=== PATIENT | female | born 1990 | race Two or more races ===

== ENCOUNTER 2017-03-19 18:30 | Emergency (ER) | payer MEDICAID, OTHER ==
--- NOTE | 2017-03-19 19:16 | ER Document Report ---
ED Medical Screen (RME) - General Chief Complaint: Vomiting Stated Complaint: RIGHT SIDE PAIN,VOMITING Time Seen by Provider: 03/19/17 19:11 Notes: Patient is 7 weeks and has been vomiting for the past 3 days. She has not had any diarrhea. Developed some pain in her right lower abdomen today. No fevers. No UTI symptoms. This is patient's fifth . Denies any vaginal bleeding or spotting. TRAVEL OUTSIDE OF THE [place] IN LAST 30 DAYS: No - Related Data Allergies/Adverse Reactions: No Known Allergies Allergy (Verified 03/19/17 18:37) Past Medical History Pulmonary Medical History: Reports: Hx Asthma Denies: Hx Tuberculosis Renal/ Medical History: Denies: Hx Peritoneal Dialysis Past Surgical History: Reports: Hx Section - x2 - Immunizations Hx Diphtheria, Pertussis, Tetanus Vaccination: Yes Physical Exam - Vital signs Vitals: Temp Pulse Resp BP Pulse Ox 98.1 F 100 21 H 110/58 L 99 03/19/17 18:37 03/19/17 18:37 03/19/17 18:37 03/19/17 18:37 03/19/17 18:37 Course - Vital Signs Vital signs: Temp Pulse Resp BP Pulse Ox 98.1 F 100 21 H 110/58 L 99 03/19/17 18:37 03/19/17 18:37 03/19/17 18:37 03/19/17 18:37 03/19/17 18:37
[2017-03-19] MEDS ORDERED: METOCLOPRAMIDE HCL INJ/PF 10 MG/2 ML SDV IV ONE (19:17)
[2017-03-19] MEDS ORDERED: NORMAL SALINE 1000 ML 1,000 ML IV ONE (19:17)
[2017-03-19 19:52] LABS: ABSOLUTE BASOPHILS # (AUTO) 0.1 10^3/uL (0.0-0.2); ABSOLUTE EOSINOPHILS # (AUTO) 0.1 10^3/uL (0.0-0.6); ABSOLUTE LYMPHOCYTES (AUTO) 1.9 10^3/uL (0.5-4.7); ABSOLUTE MONOCYTES (AUTO) 0.5 10^3/uL (0.1-1.4); ABSOLUTE NEUT (AUTO) 6.6 10^3/uL (1.7-8.2); BASOPHILS % (AUTO) 0.7 % (0-2); HEMATOCRIT 39.8 % (36.0-47.0); HEMOGLOBIN 13.7 g/dL (12.0-15.5); HGB HCT DIFFERENCE 1.3; LYMPHOCYTES % (AUTO) 20.4 % (13-45); MEAN CORPUSCULAR HEMOGLOBIN 30.5 pg (27.0-33.4); MEAN CORPUSCULAR HGB CONC 34.5 g/dL (32.0-36.0); MEAN CORPUSCULAR VOLUME 88 fl (80-97); MONOCYTES % (AUTO) 5.8 % (3-13); RED BLOOD COUNT 4.51 10^6/uL (3.72-5.28); RED CELL DISTRIBUTION WIDTH 13.1 % (11.5-14.0); SEGMENTED NEUTROPHILS % (AUTO) 72.1 % (42-78); WHITE BLOOD COUNT 9.1 10^3/uL (4.0-10.5)
[2017-03-19 19:56] LABS: APPEARANCE,URINE CLEAR; BILIRUBIN,URINE NEGATIVE (NEGATIVE); GLUCOSE, URINE NEGATIVE (NEGATIVE); KETONES,URINE 20 mg/dL (NEGATIVE); LEUKOCYTE ESTERASE,URINE NEGATIVE (NEGATIVE); NITRITE,URINE NEGATIVE (NEGATIVE); PROTEIN,URINE NEGATIVE (NEGATIVE); URINE SPECIFIC GRAVITY 1.008; UROBILINOGEN,URINE NEGATIVE mg/dL (<2.0)
[2017-03-19 20:08] LABS: ALANINE AMINOTRANSFERASE 37 U/L (9-52); ALBUMIN 4.4 g/dL (3.5-5.0); ALKALINE PHOSPHATASE 51 U/L (38-126); ANION GAP 10 (5-19); ASPARTATE AMINO TRANSFERASE 22 U/L (14-36); BILIRUBIN,DIRECT 0.3 mg/dL (0.0-0.4); BILIRUBIN,TOTAL 0.6 mg/dL (0.2-1.3); BLOOD UREA NITROGEN 7 mg/dL (7-20); CALCIUM 10.3 mg/dL (8.4-10.2); CARBON DIOXIDE 24 mmol/L (22-30); CHLORIDE 103 mmol/L (98-107); CREATININE RESULT 0.54 mg/dL (0.52-1.25); GLUCOSE 78 mg/dL (75-110); POTASSIUM 3.9 mmol/L (3.6-5.0); SODIUM 136.9 mmol/L (137-145); TOTAL PROTEIN 6.8 g/dL (6.3-8.2)
[2017-03-19] MEDS ORDERED: DIPHENHYDRAMINE HCL 50 MG/ML VIAL IV ONE (21:36)
--- NOTE | 2017-03-19 21:55 | ER Document Report ---
ED GI/ - General Chief Complaint: Vomiting Stated Complaint: RIGHT SIDE PAIN,VOMITING Time Seen by Provider: 03/19/17 19:11 Notes: Patient is a patient is a 26-year-old female, at 7 weeks gestation by last menstrual period, the comes emergency department for chief complaint of vomiting for 3 days at about 5+ times a day, that she also states she is feeling pain in the mid to right lower abdomen that began this evening and after she came to the emergency department she noticed that she has started vaginally spotting. Patient denies any fever, flank pain, she states she had a normal bowel movement earlier today. Patient is on vitamins, denies any other medications, was evaluated by [facility] already (Dr. Cartwright, [facility]). TRAVEL OUTSIDE OF THE [place] IN LAST 30 DAYS: No - Related Data Allergies/Adverse Reactions: No Known Allergies Allergy (Verified 03/19/17 18:37) Past Medical History - General Information source: Patient - Social History Smoking Status: Current Some Day Smoker Chew tobacco use (# tins/day): No Frequency of alcohol use: None Drug Abuse: None Lives with: Family Family History: Reviewed & Not Pertinent Patient has suicidal ideation: No Patient has homicidal ideation: No Pulmonary Medical History: Reports: Hx Asthma Denies: Hx Tuberculosis Renal/ Medical History: Denies: Hx Peritoneal Dialysis Past Surgical History: Reports: Hx Section - x2 - Immunizations Hx Diphtheria, Pertussis, Tetanus Vaccination: Yes Review of Systems - Review of Systems Constitutional: No symptoms reported EENT: No symptoms reported Cardiovascular: No symptoms reported Respiratory: No symptoms reported Gastrointestinal: See HPI Genitourinary: See HPI Female Genitourinary: No symptoms reported Musculoskeletal: No symptoms reported Skin: No symptoms reported Hematologic/Lymphatic: No symptoms reported Neurological/Psychological: No symptoms reported Physical Exam - Vital signs Vitals: Temp Pulse Resp BP Pulse Ox 98.1 F 100 21 H 110/58 L 99 03/19/17 18:37 03/19/17 18:37 03/19/17 18:37 03/19/17 18:37 03/19/17 18:37 Interpretation: Normal - General General appearance: Appears well In distress: None - HEENT Head: Normocephalic, Atraumatic Eyes: Normal Eyelashes: Normal Pupils: PERRL Mouth/Lips: Normal Mucous membranes: Dry Pharynx: Normal Neck: Normal - Respiratory Respiratory status: No respiratory distress Chest status: Nontender Breath sounds: Normal. No: Decreased air movement, Wheezing Chest palpation: Normal - Cardiovascular Rhythm: Regular, Tachycardia Heart sounds: Normal auscultation, S1 appreciated, S2 appreciated Murmur: No - Abdominal Inspection: Normal Distension: No distension Bowel sounds: Normal Tenderness: Tender - There is mild bilateral lower abdominal tenderness, generalized, no guarding Organomegaly: No organomegaly - Back Back: Normal, Nontender. No: Tender, CVA tenderness - Extremities General upper extremity: Normal inspection, Nontender, Normal strength, Normal temperature General lower extremity: Normal inspection, Nontender, Normal strength, Normal temperature - Neurological Neuro grossly intact: Yes Cognition: Normal Orientation: AAOx4 [place] Coma Scale Eye Opening: Spontaneous Jia Coma Scale Verbal: Oriented [place] Coma Scale Motor: Obeys Commands Jia Coma Scale Total: 15 Speech: Normal Motor strength normal: LUE, RUE, LLE, RLE Sensory: Normal - Psychological Associated symptoms: Normal affect, Normal mood - Skin Skin Temperature: Warm Skin Moisture: Dry Skin Color: Normal Course - Re-evaluation Re-evalutation: CBC, chemistry generally unremarkable, urine shows trace ketones and elevated specific gravity, patient given IV fluids, nausea medication. On reevaluation patient states she feels much better. Patient has some generalized lower abdominal tenderness, hCG is elevated, ultrasound performed and shows IUP with additional subchorionic hemorrhage. RhoGam is not indicated. Discussed all results with patient, patient states that she will follow-up closely with [facility] and that she is ready to go home, providing with nausea medication, provided with copy of her ultrasound, discussed follow-up, return precautions in detail, patient and state understanding and agreement - Vital Signs Vital signs: Temp Pulse Resp BP Pulse Ox 98.4 F 84 18 117/64 100 03/20/17 01:05 03/20/17 01:05 03/20/17 01:05 03/20/17 01:05 03/20/17 01:05 - Laboratory Result Diagrams: 03/19/17 19:25 03/19/17 19:25 Laboratory results interpreted by me: 03/19/17 03/19/17 03/19/17 19:25 19:25 19:25 Sodium 136.9 L Calcium 10.3 H Beta HCG, Quant 724832.00 H Urine Ketones 20 H Discharge - Discharge Clinical Impression: Vomiting affecting , Pelvic cramping Condition: Stable Disposition: HOME, SELF-CARE Additional Instructions: Ultrasound shows a subchorionic bleed which is most likely the cause of your cramping. Please fall precautions, no significant lifting, no exercise beyond walking, no sexual intercourse until approved to do so by [facility]. Follow-up closely with [facility] for additional management. Return to the Emergency department for any concerning worsening symptoms including severe pain, fever, very heavy bleeding, dizziness, or any other concerning symptoms. Prescriptions: Promethazine HCl [Phenergan 25 mg Tablet] 1 - 2 tab PO Q6H PRN #30 tablet PRN Reason: Referrals: ROSA CARTWRIGHT MD [Primary Care Provider] - Follow up as needed
[2017-03-20] MEDS ORDERED: ONDANSETRON ODT 4 MG TAB (6 TAB/DSPK) PO PRN (00:47)
[2017-03-20 01:13] VITALS: BP 117/64
== END 2017-03-20 01:10 | disposition home or self-care (01) ==
LOC: ER 18:30
DX: O21.9 Vomiting of pregnancy, unspecified (principal); O20.8 Other hemorrhage in early pregnancy; O26.891 Other specified pregnancy related conditions, first trimester; R10.2 Pelvic and perineal pain; R00.0 Tachycardia, unspecified; O99.331 Smoking (tobacco) complicating pregnancy, first trimester; O99.511 Diseases of the respiratory system complicating pregnancy, first trimester; J45.909 Unspecified asthma, uncomplicated; Z3A.01 Less than 8 weeks gestation of pregnancy
CPT/HCPCS: 99284; 96374; 96375; 86900; 86901; 36415; 84702; 85025; 80053; 81001; 76817; 93976; J1200; J2765

== ENCOUNTER 2017-04-26 08:29 | Emergency (ER) | payer MEDICAID ==
[2017-04-26 08:35] VITALS: BP 114/64
--- NOTE | 2017-04-26 09:11 | ER Document Report ---
ED GI/ - General Mode of Arrival: Ambulatory Information source: Patient TRAVEL OUTSIDE OF THE [place] IN LAST 30 DAYS: No - HPI Patient complains to provider of: Other Onset: This morning <THOMAS MAGALLON - Last Filed: 04/26/17 10:36> <LE SIBLEY - Last Filed: 04/26/17 11:36> - General Chief Complaint: Vaginal Bleeding Stated Complaint: ABDOMINAL PAIN Time Seen by Provider: 04/26/17 08:59 Notes: Patient is a 26-year-old female who presents to the emergency department today with complaints of lower abdominal pain. Patient states the pain is a cramping feeling and it began overnight last night. Patient states when she woke up this morning and she had slight vaginal bleeding. Patient is approximately 12 weeks . Patient denies any recent intercourse. (THOMAS MAGALLON) - Related Data Allergies/Adverse Reactions: No Known Allergies Allergy (Verified 04/26/17 08:32) Past Medical History - General Information source: Patient - Social History Smoking Status: Unknown if Ever Smoked Frequency of alcohol use: None Drug Abuse: None Lives with: Family Family History: Reviewed & Not Pertinent Patient has suicidal ideation: No Patient has homicidal ideation: No Pulmonary Medical History: Reports: Hx Asthma Past Surgical History: Reports: Hx Section - x2 - Immunizations Hx Diphtheria, Pertussis, Tetanus Vaccination: Yes <THOMAS MAGALLON - Last Filed: 04/26/17 10:36> Review of Systems - Review of Systems Constitutional: No symptoms reported EENT: No symptoms reported Cardiovascular: No symptoms reported Respiratory: No symptoms reported Gastrointestinal: See HPI, Abdominal pain - lower Genitourinary: No symptoms reported Female Genitourinary: See HPI, , Vaginal bleeding Musculoskeletal: No symptoms reported Skin: No symptoms reported Hematologic/Lymphatic: No symptoms reported Neurological/Psychological: No symptoms reported -: Yes All other systems reviewed and negative <THOMAS MAGALLON - Last Filed: 04/26/17 10:36> Physical Exam - Vital signs Interpretation: Normal - General General appearance: Appears well, Alert - HEENT Head: Normocephalic, Atraumatic Eyes: Normal Pupils: PERRL - Respiratory Respiratory status: No respiratory distress Chest status: Nontender Breath sounds: Normal Chest palpation: Normal - Cardiovascular Rhythm: Regular Heart sounds: Normal auscultation Murmur: No - Abdominal Inspection: Normal, Gravid female Distension: No distension Bowel sounds: Normal Tenderness: Nontender Organomegaly: No organomegaly - Back Back: Normal, Nontender - Extremities General upper extremity: Normal inspection, Nontender, Normal color, Normal ROM , Normal temperature General lower extremity: Normal inspection, Nontender, Normal color, Normal ROM , Normal temperature, Normal weight bearing. No: Gwendolyn's sign - Neurological Neuro grossly intact: Yes Cognition: Normal Orientation: AAOx4 Jia Coma Scale Eye Opening: Spontaneous Jia Coma Scale Verbal: Oriented Jia Coma Scale Motor: Obeys Commands Jia Coma Scale Total: 15 Speech: Normal Motor strength normal: LUE, RUE, LLE, RLE Sensory: Normal - Psychological Associated symptoms: Normal affect, Normal mood - Skin Skin Temperature: Warm Skin Moisture: Dry Skin Color: Normal <LE SIBLEY - Last Filed: 04/26/17 11:36> - Vital signs Vitals: Temp Pulse Resp BP Pulse Ox 98.6 F 90 16 114/64 99 04/26/17 08:33 04/26/17 08:33 04/26/17 08:33 04/26/17 08:33 04/26/17 08:33 Course - Laboratory Result Diagrams: 04/26/17 09:45 04/26/17 09:45 <THOMAS MAGALLON - Last Filed: 04/26/17 10:36> - Laboratory Result Diagrams: 04/26/17 09:45 04/26/17 09:45 <LE SIBLEY - Last Filed: 04/26/17 11:36> - Re-evaluation Re-evalutation: 04/26/17 11:35 Intrauterine and bedside ultrasound with heart beat at about 160 bpm. No evidence for urinary tract infection. Patient with scant vaginal bleeding. Would like to defer exam to [facility]. She is to follow-up with them this week. Stable for discharge. Return if any worsening or concerning symptoms. Understands and agrees with plan. Stable for discharge. (LE SIBLEY) - Vital Signs Vital signs: Temp Pulse Resp BP Pulse Ox 98.6 F 90 16 114/64 99 04/26/17 08:33 04/26/17 08:33 04/26/17 08:33 04/26/17 08:33 04/26/17 08:33 - Laboratory Laboratory results interpreted by me: 04/26/17 04/26/17 04/26/17 09:20 09:45 09:45 Hct 34.9 L Sodium 135.0 L BUN 6 L Creatinine 0.49 L Glucose 72 L Total Protein 5.9 L Albumin 3.3 L Beta HCG, Quant 03305.00 H Urine Urobilinogen 2.0 H Procedures - Ultrasound/Bedside Ultrasound/Bedside Ultrasound: Other - IUP, FHR 160bpm <LE SIBLEY - Last Filed: 04/26/17 11:36> Discharge <THOMAS MAGALLON - Last Filed: 04/26/17 10:36> <LE SIBLEY - Last Filed: 04/26/17 11:36> - Discharge Clinical Impression: Vaginal bleeding during , antepartum Qualifiers: Trimester: first trimester Qualified Code(s): O46.91 - Antepartum hemorrhage, unspecified, first trimester Condition: Stable Disposition: HOME, SELF-CARE Instructions: Bleeding During Early ([facility]) Forms: Return to Work Referrals: ROSA CARTWRIGHT MD [Primary Care Provider] - Follow up in 3-5 days Scribe Attestation: 04/26/17 11:36 I personally performed the services described in the documentation, reviewed and edited the documentation which was dictated to the scribe in my presence, and it accurately records my words and actions. (LE SIBLEY) Scribe Documentation - Scribe Written by Amnaibe:: Natividad Mcnair, 04/26/2017 1041 acting as scribe for :: Julian <THOMAS MAGALLON - Last Filed: 04/26/17 10:36>
[2017-04-26 10:06] LABS: APPEARANCE,URINE CLOUDY; BILIRUBIN,URINE NEGATIVE (NEGATIVE); GLUCOSE, URINE NEGATIVE (NEGATIVE); KETONES,URINE NEGATIVE (NEGATIVE); LEUKOCYTE ESTERASE,URINE NEGATIVE (NEGATIVE); NITRITE,URINE NEGATIVE (NEGATIVE); PROTEIN,URINE NEGATIVE (NEGATIVE); URINE SPECIFIC GRAVITY 1.023
[2017-04-26 10:13] LABS: RBC,URINE 0-1 /HPF
[2017-04-26 10:31] LABS: ABSOLUTE EOSINOPHILS # (AUTO) 0.1 10^3/uL (0.0-0.6); ABSOLUTE LYMPHOCYTES (AUTO) 1.5 10^3/uL (0.5-4.7); ABSOLUTE MONOCYTES (AUTO) 0.3 10^3/uL (0.1-1.4); ABSOLUTE NEUT (AUTO) 4.1 10^3/uL (1.7-8.2); BASOPHILS % (AUTO) 0.7 % (0-2); EOSINOPHILS % (AUTO) 1.1 % (0-6); HEMATOCRIT 34.9 % (36.0-47.0); HGB HCT DIFFERENCE 1.1; LYMPHOCYTES % (AUTO) 25.3 % (13-45); MEAN CORPUSCULAR HEMOGLOBIN 30.1 pg (27.0-33.4); MEAN CORPUSCULAR HGB CONC 34.4 g/dL (32.0-36.0); MEAN CORPUSCULAR VOLUME 88 fl (80-97); MONOCYTES % (AUTO) 5.2 % (3-13); RED BLOOD COUNT 3.99 10^6/uL (3.72-5.28); RED CELL DISTRIBUTION WIDTH 12.8 % (11.5-14.0); SEGMENTED NEUTROPHILS % (AUTO) 67.7 % (42-78)
[2017-04-26 10:48] LABS: ALANINE AMINOTRANSFERASE 17 U/L (9-52); ALBUMIN 3.3 g/dL (3.5-5.0); ALKALINE PHOSPHATASE 44 U/L (38-126); ANION GAP 5 (5-19); ASPARTATE AMINO TRANSFERASE 14 U/L (14-36); BILIRUBIN,DIRECT 0.3 mg/dL (0.0-0.4); BILIRUBIN,TOTAL 0.4 mg/dL (0.2-1.3); BLOOD UREA NITROGEN 6 mg/dL (7-20); CALCIUM 9.2 mg/dL (8.4-10.2); CARBON DIOXIDE 24 mmol/L (22-30); CHLORIDE 106 mmol/L (98-107); CREATININE RESULT 0.49 mg/dL (0.52-1.25); GLUCOSE 72 mg/dL (75-110); TOTAL PROTEIN 5.9 g/dL (6.3-8.2)
== END 2017-04-26 10:30 | disposition home or self-care (01) ==
LOC: ER 08:29
DX: O20.9 Hemorrhage in early pregnancy, unspecified (principal); O26.891 Other specified pregnancy related conditions, first trimester; R10.30 Lower abdominal pain, unspecified; O99.511 Diseases of the respiratory system complicating pregnancy, first trimester; J45.909 Unspecified asthma, uncomplicated; Z3A.00 Weeks of gestation of pregnancy not specified
CPT/HCPCS: 36415; 80053; 81001; 84702; 85025; 99284

== ENCOUNTER 2017-05-06 10:29 | Emergency (ER) | payer MEDICAID ==
[2017-05-06 10:41] VITALS: BP 109/55
--- NOTE | 2017-05-06 11:36 | ER Document Report ---
ED Medical Screen (RME) - General Chief Complaint: Abdominal Pain Stated Complaint: ABDOMINAL PAIN Time Seen by Provider: 05/06/17 11:27 Notes: 27-year-old female who is 13 weeks complaining of a one-week vaginal discharge brownish and pinkish, with onset last night of lower abdomen pain and migraine headache. She was seen here on 04/26/2017 with essentially the same symptoms. The discharge is continued since then. She was seen here on 2016 and had an ultrasound showing about a 6 week with small subchorionic bleed. I have greeted and performed a rapid initial assessment of this patient. A comprehensive ED assessment and evaluation of the patient, analysis of test results and completion of the medical decision making process will be conducted by additional ED providers. TRAVEL OUTSIDE OF THE [place] IN LAST 30 DAYS: No - Related Data Allergies/Adverse Reactions: No Known Allergies Allergy (Verified 04/26/17 08:32) Past Medical History Pulmonary Medical History: Reports: Hx Asthma Denies: Hx Tuberculosis Renal/ Medical History: Denies: Hx Peritoneal Dialysis Past Surgical History: Reports: Hx Section - x2 - Immunizations Hx Diphtheria, Pertussis, Tetanus Vaccination: Yes Physical Exam - Vital signs Vitals: Temp Pulse Resp BP Pulse Ox 98.5 F 96 15 109/55 L 97 05/06/17 10:36 05/06/17 10:36 05/06/17 10:36 05/06/17 10:36 05/06/17 10:36 Course - Vital Signs Vital signs: Temp Pulse Resp BP Pulse Ox 98.5 F 96 15 109/55 L 97 05/06/17 10:36 05/06/17 10:36 05/06/17 10:36 05/06/17 10:36 05/06/17 10:36
[2017-05-06 11:54] LABS: ABSOLUTE EOSINOPHILS # (AUTO) 0.1 10^3/uL (0.0-0.6); ABSOLUTE LYMPHOCYTES (AUTO) 1.5 10^3/uL (0.5-4.7); ABSOLUTE MONOCYTES (AUTO) 0.3 10^3/uL (0.1-1.4); BASOPHILS % (AUTO) 0.6 % (0-2); EOSINOPHILS % (AUTO) 0.9 % (0-6); HEMATOCRIT 35.6 % (36.0-47.0); HEMOGLOBIN 12.4 g/dL (12.0-15.5); HGB HCT DIFFERENCE 1.6; LYMPHOCYTES % (AUTO) 18.7 % (13-45); MEAN CORPUSCULAR HEMOGLOBIN 30.8 pg (27.0-33.4); MEAN CORPUSCULAR HGB CONC 34.8 g/dL (32.0-36.0); MEAN CORPUSCULAR VOLUME 89 fl (80-97); MONOCYTES % (AUTO) 3.8 % (3-13); RED BLOOD COUNT 4.02 10^6/uL (3.72-5.28); RED CELL DISTRIBUTION WIDTH 12.6 % (11.5-14.0); WHITE BLOOD COUNT 7.9 10^3/uL (4.0-10.5)
--- NOTE | 2017-05-06 12:42 | ER Document Report ---
ED GI/ - General Chief Complaint: Abdominal Pain Stated Complaint: ABDOMINAL PAIN Time Seen by Provider: 05/06/17 11:27 Notes: The patient is a 27-year-old female, 13 weeks , presents with lower abdominal pain and continuing brown vaginal discharge. Pt also with mild headache, similar to prior headaches. She was here last week for similar symptoms. She has an appointment with OB in 2 days. She denies any concerns for STDs, dysuria, nausea, vomiting, diarrhea, constipation or rash. TRAVEL OUTSIDE OF THE [place] IN LAST 30 DAYS: No - Related Data Allergies/Adverse Reactions: No Known Allergies Allergy (Verified 04/26/17 08:32) Past Medical History - General Information source: Patient - Social History Smoking Status: Unknown if Ever Smoked Family History: Reviewed & Not Pertinent Patient has suicidal ideation: No Patient has homicidal ideation: No Pulmonary Medical History: Reports: Hx Asthma Denies: Hx Tuberculosis Renal/ Medical History: Denies: Hx Peritoneal Dialysis Past Surgical History: Reports: Hx Section - x2 - Immunizations Hx Diphtheria, Pertussis, Tetanus Vaccination: Yes Review of Systems - Review of Systems Notes: REVIEW OF SYSTEMS: CONSTITUTIONAL: -fevers, -chills EENT: -eye pain, -difficulty swallowing, -nasal congestion CARDIOVASCULAR:-chest pain, -syncope. RESPIRATORY: -cough, -SOB GASTROINTESTINAL: +lower abdominal pain, -nausea, -vomiting, -diarrhea GENITOURINARY: -dysuria, -hematuria, +vaginal discharge MUSCULOSKELETAL: -back pain, -neck pain SKIN: -rash or skin lesions. HEMATOLOGIC: -easy bruising or bleeding. LYMPHATIC: -swollen, enlarged glands. NEUROLOGICAL: -altered mental status or loss of consciousness, -headache, - neurologic symptoms PSYCHIATRIC: -anxiety, -depression. ALL OTHER SYSTEMS REVIEWED AND NEGATIVE. Physical Exam - Vital signs Vitals: Temp Pulse Resp BP Pulse Ox 98.5 F 96 15 109/55 L 97 05/06/17 10:36 05/06/17 10:36 05/06/17 10:36 05/06/17 10:36 05/06/17 10:36 - Notes Notes: PHYSICAL EXAMINATION: GENERAL: Well-appearing, well-nourished and in no acute distress. HEAD: Atraumatic, normocephalic. EYES: Pupils equal round and reactive to light, extraocular movements intact, sclera anicteric, conjunctiva are normal. ENT: nares patent, oropharynx clear without exudates. Moist mucous membranes. NECK: Normal range of motion, supple without lymphadenopathy LUNGS: Breath sounds clear to auscultation bilaterally and equal. No wheezes rales or rhonchi. HEART: Regular rate and rhythm without murmurs ABDOMEN: Soft, nontender, normoactive bowel sounds. No guarding, no rebound. No masses appreciated. PELVIC: Pt deferred to OB appointment in 2 days. EXTREMITIES: Normal range of motion, no pitting or edema. No cyanosis. NEUROLOGICAL: Cranial nerves grossly intact. Normal speech, normal gait. Normal sensory and motor exams. PSYCH: Normal mood, normal affect. SKIN: Warm, Dry, normal turgor, no rashes or lesions noted. Course - Re-evaluation Re-evalutation: Patient appears well. Bedside ultrasound shows a single intrauterine . Patient defers pelvic exam at this time because she has an OB appointment in 2 days. She does not have concern for gonorrhea or chlamydia. Instructed her to continue Tylenol and add magnesium for her migraine. Given return precautions and she understands. - Vital Signs Vital signs: Temp Pulse Resp BP Pulse Ox 98.5 F 96 15 109/55 L 97 05/06/17 10:36 05/06/17 10:36 05/06/17 10:36 05/06/17 10:36 05/06/17 10:36 - Laboratory Result Diagrams: 05/06/17 11:40 Laboratory results interpreted by me: 05/06/17 05/06/17 11:40 11:40 Hct 35.6 L Beta HCG, Quant 56569.00 H Procedures - Ultrasound/Bedside Ultrasound/Bedside Time completed: 12:52 Ultrasound: Normal Notes: Bedside Transabdominal US: single IUP with FHR 152 Discharge - Discharge Clinical Impression: Lower abdominal pain Headache Qualifiers: Headache type: unspecified Headache chronicity pattern: unspecified pattern Intractability: not intractable Qualified Code(s): R51 - Headache Condition: Stable Disposition: HOME, SELF-CARE Additional Instructions: HEADACHE: The physician does not feel that the headache you are experiencing has a serious underlying cause. Most headaches are due to emotional stress, with resultant muscle tension (tension headache). Occasionally, headaches are secondary to changes in the blood vessels of the scalp (vascular headache and migraine headache). Sometimes, a headache is the first symptom of another developing illness, such as a viral infection. You have no evidence of stroke, bleeding, meningitis, or other serious cause of your headache. The treatment of headaches varies with the severity and cause of the pain. Not all headaches need pain shots. In fact, there is evidence that using narcotics for headaches may make them worse in the long run. The physician will determine the therapy that's in your best interest. If you develop a fever, if the headache is different from any you've previously experienced, or if the headache progressively worsens, then call your physician at once or go to the emergency room. REGLAN (METOCLOPRAMIDE): Reglan has been prescribed. This medicine affects the stomach and intestines. It can be used to treat nausea and vomiting, to prevent reflux of stomach acid up into the esophagus, or to increase the contractions of the stomach and intestines. It is often prescribed for esophagitis, and for paralysis of the stomach in diabetics. Reglan can cause either mild restlessness or drowsiness. You should contact the doctor at once if you become extremely restless, anxious, or cannot sleep, or if you develop uncontrollable motions of the lips, tongue, or jaw. Do not take alcohol with this medicine. Do not drive or operate machinery until you have been taking this medicine long enough to know how it affects you. Call the doctor if you develop abdominal pains, lightheadedness, black stool, or blood in the stool or vomitus. USE OF DIPHENHYDRAMINE: Diphenhydramine (Benadryl) is an antihistamine and has been recommended to help treat your headache and to prevent side effects of other medications used to treat headaches. The medication can be repeated four times daily. Age Elixir (12.5 mg/tsp) 25 mg pill adult 1-2 tabs Antihistamines may cause drowsiness, especially with the first dose. Do not operate machinery or drive while under the effects of the medication. Do not combine the medication with alcohol, or with any other medication without talking to your doctor. FOLLOW-UP CARE: If you have been referred to a physician for follow-up care, call the physician s office for an appointment as you were instructed or within the next two days. If you experience worsening or a significant change in your symptoms, notify the physician immediately or return to the Emergency Department at any time for re-evaluation. ABDOMINAL PAIN: There are many causes of abdominal pain. Pain can mean a serious problem requiring surgery (such as appendicitis). It can also be an innocent problem that goes away on its own (such as a viral infection). Often, time must pass to determine the cause of pain. The physician does not feel that hospitalization is necessary, at present. Things may change within the next 24 hours. Call the doctor or come back for re- examination if any problems occur, such as: (1) Pain that becomes more severe, steady, or becomes concentrated in one specific area. Also, pain that is more severe with movement or coughing. (2) Vomiting that persists or becomes more frequent. (3) Blood in the vomitus, urine, or bowel movements. Blood in the stool may have a tarry or black appearance. (4) Shaking chills or fever greater than 100 degrees F. (5) The abdomen becomes more distended or swollen. (6) Bowel movements cease. (7) Failure to improve as expected. NORMAL EXAM AND WORKUP: At this time, your examination and workup show no significant abnormality. No significant abnormal physical findings are noted. All laboratory, EKG, and imaging (x-ray, CT scans, ultrasound) studies that were ordered show no significant abnormality. Although your examination and all studies that were ordered showed no significant abnormal finding, there are no examinations and no studies that are 100% accurate. There is always the possibility that some abnormality could exist and not be detected with physical examination or within the limits and capabilities of laboratory and other studies. You should return or follow up as you were instructed on your visit today for further evaluation if your symptoms do not resolve. FOLLOW-UP CARE: If you have been referred to a physician for follow-up care, call the physician s office for an appointment as you were instructed or within the next two days. If you experience worsening or a significant change in your symptoms, notify the physician immediately or return to the Emergency Department at any time for re-evaluation. Prescriptions: Magnesium Oxide 400 mg PO Q8H PRN #30 tablet PRN Reason: Referrals: ROSA CARTWRIGHT MD [Primary Care Provider] - Follow up as needed
[2017-05-06 14:05] LABS: AMORPHOUS SEDIMENT,URINE TRACE /HPF; APPEARANCE,URINE SLIGHTLY-CLOUDY; BILIRUBIN,URINE NEGATIVE (NEGATIVE); GLUCOSE, URINE NEGATIVE (NEGATIVE); KETONES,URINE NEGATIVE (NEGATIVE); LEUKOCYTE ESTERASE,URINE NEGATIVE (NEGATIVE); NITRITE,URINE NEGATIVE (NEGATIVE); PROTEIN,URINE NEGATIVE (NEGATIVE); URINE SPECIFIC GRAVITY 1.013; UROBILINOGEN,URINE NEGATIVE mg/dL (<2.0)
[2017-05-06 14:18] LABS: CHLAM PCR NOT DETECTED (NOT DETECT)
== END 2017-05-06 14:58 | disposition home or self-care (01) ==
LOC: ER 10:29
DX: R10.30 Lower abdominal pain, unspecified (principal); R51 Headache; R10.9 Unspecified abdominal pain; Z3A.13 13 weeks gestation of pregnancy
CPT/HCPCS: 36415; 81001; 84702; 85025; 87491; 87591; 99284

== ENCOUNTER 2017-06-16 16:03 | Emergency (ER) | payer MEDICAID ==
[2017-06-16 16:27] VITALS: BP 110/71
== END 2017-06-16 16:55 | disposition left against medical advice (07) ==
LOC: ER 16:03 → EDSTATUS 16:03 → ER 16:55
DX: Z53.21 Procedure and treatment not carried out due to patient leaving prior to being seen by health care provider (principal)

== ENCOUNTER 2017-07-27 11:26 | Outpatient (CLI) | payer MEDICAID ==
[2017-07-27 12:03] LABS: AMORPHOUS SEDIMENT,URINE 1+ /HPF; APPEARANCE,URINE TURBID; BILIRUBIN,URINE NEGATIVE (NEGATIVE); GLUCOSE, URINE NEGATIVE (NEGATIVE); KETONES,URINE NEGATIVE (NEGATIVE); LEUKOCYTE ESTERASE,URINE NEGATIVE (NEGATIVE); NITRITE,URINE NEGATIVE (NEGATIVE); PROTEIN,URINE NEGATIVE (NEGATIVE); URINE SPECIFIC GRAVITY 1.017; UROBILINOGEN,URINE NEGATIVE mg/dL (<2.0)
[2017-07-27 12:16] LABS: URINE METHADONE SCREEN NEGATIVE; URINE OPIATES LOW NEGATIVE; URINE PHENCYCLIDINE SCREEN NEGATIVE
[2017-07-27 12:24] LABS: URINE BARBITURATES SCREEN UNCONFIRMED POSITIVE
[2017-07-27] MEDS ORDERED: NIFEDIPINE 10 MG CAPSULE ONE (12:48)
[2017-07-27] MEDS ORDERED: NIFEDIPINE 10 MG CAPSULE PO ONE (12:50)
== END 2017-07-27 13:30 | disposition home or self-care (01) ==
LOC: LC 11:26
PROVIDERS: ATTEND Student in an Organized Health Care Education/Training Program
PROC: 4A1HXCZ Monitoring of Products of Conception, Cardiac Rate, External Approach (ICD-10-PCS; principal; 2017-07-27)
DX: O47.02 False labor before 37 completed weeks of gestation, second trimester (principal); Z3A.25 25 weeks gestation of pregnancy
CPT/HCPCS: 59899; 81001; 80307; 80345; G0480; J3490

== ENCOUNTER 2017-08-29 16:41 | Outpatient (CLI) | payer MEDICAID ==
[2017-08-29 17:42] LABS: AMORPHOUS SEDIMENT,URINE TRACE /HPF; APPEARANCE,URINE CLOUDY; BILIRUBIN,URINE NEGATIVE (NEGATIVE); GLUCOSE, URINE NEGATIVE (NEGATIVE); KETONES,URINE NEGATIVE (NEGATIVE); LEUKOCYTE ESTERASE,URINE NEGATIVE (NEGATIVE); NITRITE,URINE NEGATIVE (NEGATIVE); PROTEIN,URINE NEGATIVE (NEGATIVE); URINE SPECIFIC GRAVITY 1.009; UROBILINOGEN,URINE NEGATIVE mg/dL (<2.0)
[2017-08-29] MEDS ORDERED: TERBUTALINE SULFATE INJ/PF 1 MG/1 ML SDV SUBCUT PRN (17:45)
[2017-08-29] MEDS ORDERED: RINGERS SOLUTION,LACTATED 1,000 ML IV PRN (17:45)
[2017-08-29] MEDS ORDERED: TERBUTALINE SULFATE INJ/PF 1 MG/1 ML SDV ONE (17:48)
[2017-08-29 17:53] LABS: URINE BARBITURATES SCREEN NEGATIVE; URINE METHADONE SCREEN NEGATIVE; URINE OPIATES LOW NEGATIVE; URINE PHENCYCLIDINE SCREEN NEGATIVE
--- NOTE | 2017-08-29 19:25 | RADIOLOGY REPORT (SQ) ---
EXAM DESCRIPTION: U/S OB LIMITED COMPLETED DATE/TIME: 08/29/2017 6:58 pm REASON FOR STUDY: 29wk, ctx, cervical length COMPARISON: None. TECHNIQUE: Limited transabdominal grayscale ultrasound for evaluation of specific requested obstetri dexter parameters. LIMITATIONS: None. FINDINGS: CERVICAL LENGTH: Cervical funneling is demonstrated; the closed segment measures 1.7 cm. GURJIT: Formal GURJIT not performed. Subjectively adequate. FHR: 139 beats per minute. PRESENTATION: Cephalic. OTHER: No other significant findings. IMPRESSION: LIMITED OBSTETRICAL ULTRASOUND WITH MEASURED PARAMETERS DELINEATED ABOVE. Trimester of : Third trimester - 28 weeks to delivery. TECHNICAL DOCUMENTATION: JOB ID: [id number] [employer]- All Rights Reserved
[2017-08-29 19:57] LABS: CHLAM PCR NOT DETECTED (NOT DETECT)
== END 2017-08-29 21:49 | disposition home or self-care (01) ==
LOC: LC 16:41
PROVIDERS: ATTEND Obstetrics & Gynecology
PROC: 4A1HXCZ Monitoring of Products of Conception, Cardiac Rate, External Approach (ICD-10-PCS; principal; 2017-08-29)
DX: O47.03 False labor before 37 completed weeks of gestation, third trimester (principal); Z3A.29 29 weeks gestation of pregnancy
CPT/HCPCS: 87086; 87210; 81001; 80307; 87491; 87591; 82731; 76815; 59899; J3105

== ENCOUNTER 2017-09-18 11:00 | Outpatient (CLI) | payer MEDICAID ==
[2017-09-18 11:33] LABS: APPEARANCE,URINE CLEAR; BILIRUBIN,URINE NEGATIVE (NEGATIVE); GLUCOSE, URINE NEGATIVE (NEGATIVE); KETONES,URINE NEGATIVE (NEGATIVE); LEUKOCYTE ESTERASE,URINE NEGATIVE (NEGATIVE); NITRITE,URINE NEGATIVE (NEGATIVE); PROTEIN,URINE NEGATIVE (NEGATIVE); URINE SPECIFIC GRAVITY 1.013; UROBILINOGEN,URINE NEGATIVE mg/dL (<2.0)
[2017-09-18 11:48] LABS: URINE BARBITURATES SCREEN NEGATIVE; URINE METHADONE SCREEN NEGATIVE; URINE OPIATES LOW NEGATIVE; URINE PHENCYCLIDINE SCREEN NEGATIVE
== END 2017-09-18 12:16 | disposition home or self-care (01) ==
LOC: LC 11:00
PROVIDERS: ATTEND Obstetrics & Gynecology Gynecology
PROC: 4A1HXCZ Monitoring of Products of Conception, Cardiac Rate, External Approach (ICD-10-PCS; principal; 2017-09-18)
DX: O47.03 False labor before 37 completed weeks of gestation, third trimester (principal); Z3A.32 32 weeks gestation of pregnancy
CPT/HCPCS: 59025; 80307; 81001

== ENCOUNTER 2017-10-05 15:06 | Emergency (ER) | payer MEDICAID ==
[2017-10-05 15:17] VITALS: BP 110/65
--- NOTE | 2017-10-05 20:37 | EKG REPORT ---
SEVERITY:- NORMAL ECG - SINUS RHYTHM : Confirmed by: Han Morgan 05-Oct-2017 20:37:24
== END 2017-10-05 16:13 | disposition left against medical advice (07) ==
LOC: ER 15:06
DX: Z53.21 Procedure and treatment not carried out due to patient leaving prior to being seen by health care provider (principal)
CPT/HCPCS: 93005; 93010

== ENCOUNTER 2017-10-19 05:03 | Inpatient (IN) | payer MEDICAID ==
[2017-10-16 11:11] LABS: APPEARANCE,URINE SLIGHTLY-CLOUDY; BILIRUBIN,URINE NEGATIVE (NEGATIVE); GLUCOSE, URINE NEGATIVE (NEGATIVE); KETONES,URINE NEGATIVE (NEGATIVE); LEUKOCYTE ESTERASE,URINE NEGATIVE (NEGATIVE); NITRITE,URINE NEGATIVE (NEGATIVE); PROTEIN,URINE NEGATIVE (NEGATIVE); URINE SPECIFIC GRAVITY 1.018; UROBILINOGEN,URINE NEGATIVE mg/dL (<2.0)
[2017-10-16 11:27] LABS: URINE BARBITURATES SCREEN NEGATIVE; URINE METHADONE SCREEN NEGATIVE; URINE OPIATES LOW NEGATIVE; URINE PHENCYCLIDINE SCREEN NEGATIVE
[2017-10-17 10:25] LABS: ABSOLUTE BASOPHILS # (AUTO) 0.1 10^3/uL (0.0-0.2); ABSOLUTE EOSINOPHILS # (AUTO) 0.1 10^3/uL (0.0-0.6); ABSOLUTE LYMPHOCYTES (AUTO) 1.8 10^3/uL (0.5-4.7); ABSOLUTE MONOCYTES (AUTO) 0.6 10^3/uL (0.1-1.4); ABSOLUTE NEUT (AUTO) 7.4 10^3/uL (1.7-8.2); BASOPHILS % (AUTO) 0.5 % (0-2); EOSINOPHILS % (AUTO) 1.2 % (0-6); HEMATOCRIT 30.7 % (36.0-47.0); HEMOGLOBIN 10.7 g/dL (12.0-15.5); HGB HCT DIFFERENCE 1.4; LYMPHOCYTES % (AUTO) 17.9 % (13-45); MEAN CORPUSCULAR HEMOGLOBIN 31.5 pg (27.0-33.4); MEAN CORPUSCULAR HGB CONC 34.7 g/dL (32.0-36.0); MEAN CORPUSCULAR VOLUME 91 fl (80-97); MONOCYTES % (AUTO) 6.1 % (3-13); RED BLOOD COUNT 3.38 10^6/uL (3.72-5.28); RED CELL DISTRIBUTION WIDTH 13.4 % (11.5-14.0); SEGMENTED NEUTROPHILS % (AUTO) 74.3 % (42-78)
[~2017-10-19 05:03] MED LIST: CEFAZOLIN 2 GM/D5W RTU 2 GM/50 ML RTUPB IV PRN; LACTATED RINGERS 1000 ML IV PRN; LIDOCAINE 0.5% INJ-PF (5 MG/ML) 50 ML SDV SUBCUT PRN; RINGERS SOLUTION,LACTATED 1,000 ML IV PRN
[2017-10-19] MEDS ORDERED: FENTANYL CITRATE INJ/PF 100 MCG/2 ML AMPUL ONE (07:31)
[2017-10-19] MEDS ORDERED: EPHEDRINE SULFATE INJ 50 MG/1 ML AMPULE ONE ×2 (07:31→08:16)
[2017-10-19] MEDS ORDERED: OXYTOCIN 10 UNIT/ML VIAL ONE (07:31)
[2017-10-19] MEDS ORDERED: MIDAZOLAM 2 MG/2 ML INJ ONE (07:32)
[2017-10-19] MEDS ORDERED: OXYTOCIN/NORMAL SALINE 20 UNIT/1,000 ML RTUINJ ONE (07:32)
[2017-10-19] MEDS ORDERED: ACETAMINOPHEN 100 ML IV ONE (07:32)
[2017-10-19] MEDS ORDERED: ONDANSETRON HCL INJ/PF 4 MG/2 ML SDV ONE (07:32)
[2017-10-19] MEDS ORDERED: PROMETHAZINE HCL INJ 25 MG/1 ML VIAL IV PRN ×3 (08:28→09:01)
[2017-10-19] MEDS ORDERED: MEPERIDINE HCL/PF INJ 25 MG/1 ML DISP.SYRIN IV PRN (08:28)
[2017-10-19] MEDS ORDERED: DIPHENHYDRAMINE HCL 50 MG/ML VIAL IV PRN (08:28)
[2017-10-19] MEDS ORDERED: MORPHINE SULFATE 10 MG/ML INJ IV PRN (08:28)
[2017-10-19] MEDS ORDERED: FENTANYL CITRATE INJ/PF 100 MCG/2 ML AMPUL IV PRN ×3 (08:28)
[2017-10-19] MEDS ORDERED: OXYCODONE-ACETAMINOPHEN 5-325 MG TABLET PO PRN ×4 (08:28→09:01)
[2017-10-19] MEDS ORDERED: ONDANSETRON HCL INJ/PF 4 MG/2 ML SDV IV PRN (08:28)
[2017-10-19] MEDS ORDERED: OXYTOCIN/NORMAL SALINE 20 UNIT/1,000 ML RTUINJ IV PRN (09:01)
[2017-10-19] MEDS ORDERED: ACETAMINOPHEN 100 ML IV PRN (09:01)
[2017-10-19] MEDS ORDERED: DIPH/PERTUSS(ACELL)/TETANUS VAC/PF 0.5 ML SYR (>=10YO) IM PRN ×2 (09:01→12:30)
[2017-10-19] MEDS ORDERED: MEASLES,MUMPS&RUBELLA VACC/PF 0.5 ML VIAL SUBCUT PRN (09:01)
[2017-10-19] MEDS ORDERED: ACETAMINOPHEN 325 MG TABLET PO PRN (09:01)
[2017-10-19] MEDS ORDERED: RINGERS SOLUTION,LACTATED 1,000 ML IV PRN (09:01)
[2017-10-19] MEDS ORDERED: NALBUPHINE HCL INJ 10 MG/1 ML AMPULE ONE (09:07)
--- NOTE | 2017-10-19 09:19 | Operative Report ---
Operative Report DATE OF SURGERY: 10/19/17 PREOPERATIVE DIAGNOSIS: Repeat to prevent uterine rupture POSTOPERATIVE DIAGNOSIS: Same OPERATION: Repeat via low transverse uterine incision SURGEON: YADIRA LOWRY ANESTHESIA: Spinal TISSUE REMOVED OR ALTERED: Placenta COMPLICATIONS: None ESTIMATED BLOOD LOSS: 250 cc INTRAOPERATIVE FINDINGS: Viable female Apgars 8 and 9 weight 6 lbs. 15 oz. normal uterus and ovaries and tubes PROCEDURE: Patient was taken to the OR and placed in supine position after her spinal anesthesia. She is prepared and draped in sterile fashion. Hummel was placed for drainage of the bladder. Low transverse incision was made and carried down the level of the fascia. The fascial incision was made with knife and extended bilaterally with curved Stafford scissors. The fascia was off the rectus muscles using sharp and blunt dissection. The rectus muscles are in the midline. The peritoneum was entered without incident. Bladder blade was placed in uterine segment was identified. A low transverse incision was made creating a bladder flap. Bladder blade was placed low transverse uterine incision was made with the csafe knife and extended with fingertips. The baby was delivered with some fundal pressure. Mouth and nose were suctioned free. The cord is doubly clamped and cut. Baby is passed off to the banquet pilot in attendance. The placenta was manually extracted with trailing membranes. The uterus was externalized wrapped in a moist lap sponge. Uterine contents wiped free. Uterus was closed with a running locking layer of 0 chromic suture using the second layer to imbricate the first completing a double layer closure of the uterus. The serosa was closed with a running 2-0 chromic stitch. The pelvis was irrigated and suctioned free of fluid the uterus was replaced in the abdomen. The abdominal wall peritoneum was closed with running 2-0 chromic stitch. Fascia was closed with a running 0 Vicryl in 2 segments. Cali's layer was brought together with 0 plain gut stitch and the skin was closed with running subcuticular 4-0 undyed Vicryl stitch. The wound was dressed mother and baby did well.
--- NOTE | 2017-10-19 09:22 | PDOC DELIVERY SUMMARY ---
Delivery Summary - Maternal Hx : VII Hx # Term Pregnancies: 1 Hx # Pregnancies: 1 MILADIS: 11/08/17 Gestational Age: 37/1 Ruptured Membranes: AROM Time of Rupture: 08:23 Fluids: Clear - Delivery Presentation: Vertex Heart Rate Monitoring: Done Pre-Operatively Support Person Present: Yes - , EMPERATRIZ QUEEN Location: OR : Scheduled Placenta: Within Normal Limits Delivery of Placenta Date: 10/19/17 Delivery of Placenta Time: 08:25 - Medications Type of Anesthesia:: Spinal - Assess and Care Baby 1 Female Delivery of Date: 10/19/17 Delivery of Infant Time: 08:24 at 1 minute: 8 at 5 minutes: 9 Preprinted Number On Band: [id number] Skin to Skin: No To Nursery At: 08:32 Mode of Transport: Bassinet Delivery Weight: 3,155 Infant Delivery Length: 20.5 in - Delivery Personnel Adobe Layer: ROSENDA Goodson RN: PASTOR DUBOIS RN: REYNA JAMES MD: YADIRA LOWRY
[2017-10-19] MEDS ORDERED: KETOROLAC TROMETHAMINE INJ/PF 30 MG/1 ML SDV ONE (10:07)
[2017-10-19] MEDS: KETOROLAC TROMETHAMINE INJ/PF 30 MG/1 ML SDV IV SCH ×2 (10:08→18:04)
[2017-10-19] MEDS ORDERED: HYDROMORPHONE HCL INJ/PF 2 MG/ML AMPULE ONE (10:08)
[2017-10-19] MEDS: HYDROMORPHONE HCL INJ/PF 2 MG/ML AMPULE IV PRN ×2 (10:26→14:15)
--- NOTE | 2017-10-19 11:24 | Admission Physical ---
Datetime Report Generated by CPN: 10/19/2017 11:23 CURRENT ADMISSION Chief Complaint: Uterine Contractions Chief Complaint Other: Vaginal pressure Indication for Induction: Not Applicable Admit Plan: Initiate Labor Protocol Admit Plan- Other: labor monitoring ALLERGIES Medication Allergies: No Medication Allergies: No Known Allergies (10/16/2017) Medication Allergies: No Known Allergies (09/18/2017) Medication Allergies: No Known Allergies (08/29/2017) Medication Allergies: No Known Allergies (07/27/2017) Medication Allergies: No Known Allergies (06/16/2017) Medication Allergies: No Known Allergies (04/26/2017) Latex: No Latex Allergies Food Allergies: N/A Environmental Allergies: N/A OBSTETRICAL HISTORY EDC: 11/08/2017 00:00 : 7 Para: 2 Term: 1 : 1 SAB: 4 IAB: 0 Ectopic: 0 Livin Cesareans: 2 VBACs: 0 Multiple Births: 0 Gestational Diabetes: No Rh Sensitization: No Incompetent Cervix: No CARLENE: No Infertility: No ART Treatment: No Uterine Anomaly: No IUGR: No Hx Previous C/S: No Macrosomia: No Hx Loss/Stillborn: No PIH: No Hx : No Placenta Previa/Abruption: No Depression/PP Depression: Yes PTL/PROM: Yes Post Hemorrhage: Yes Current Procedures: Ultrasound; NST Obstetrical History Comments: G1: 2008- classical 26 weeks G2: 2010- repeat 2010 39 weeks, uterine rupture--(pt reports no rupture, but window), blood transfusion G3: SAB G4: SAB G5: SAB G6: SAB G7: current SEE RECORDS Alcohol: No Marijuana : No Cocaine: No Other Illicit Drugs: No Cigarettes: Current Everyday Smoker. [id number] Cigarette Frequency: < 5 per day Advised to Stop: Yes MEDICAL HISTORY Diabetes: No Blood Transfusion: Yes Pulmonary Disease (Asthma, TB): Yes Breast Disease: No Hypertension: No Concrete Batcher Surgery: No Heart Disease: No Hosp/Surgery: Yes Autoimmune Disorder: No Anesthetic Complications: No Kidney Disease: No Abnormal Pap Smear: No Neuro/Epilepsy: No Psychiatric Disorders: No Other Medical Diseases: No Hepatitis/Liver Disease: No Significant Family History: Yes Varicosities/Phlebitis: No Trauma/Violence : No Thyroid Dysfunction: No Medical History Comments: asthma- last at age 14 INFECTIOUS HISTORY Gonorrhea: No Genital Herpes: No Chlamydia: Yes Tuberculosis: No Syphilis: No Hepatitis: No HIV/AIDS Exposure: No Rash or Viral Illness: No HPV: No Infectious History Comments: chlamydia- 2013 PHYSICAL EXAM General: Normal HEENT: Normal Neurologic: Normal Abdomen: Normal Genitourinary Exam: Normal Extremities: Normal Pelvic Type: Adequate Physical Exam Comments: SSE: patulous cervix appears 1cm dilated Normal leukoria No heavy mucoid vaginal dishcarge noted Uterus: gravid and NT Vital Signs: Reviewed VAGINAL EXAM Dilatation: 2 Effacement: 70 Station: -2 Contraction Comments: 2-6 MEMBRANES Pooling: Negative Membranes: Intact FETUS A EGA: 29.6 Monitoring: External US FHR- Baseline: 130s Variability: Moderate 6-25bpm Accelerations: 15X15 Decelerations: None FHR Category: Category I FHR Comments: Appropriate for gestational age/ Cervix was posterior but very soft Admit Comment: 27yo @ 29w6d presents with complaints of back pain and vaginal pressure. Pt reports good fm, no vb, no lof, no regular ctxs. Pt denies mucoid vaginal discharge and rectal pressure. Pts is complicated by a history of spontaneous PTL and delivery @ 26wks for which pt underwent a 1LTCS for breech presentation. Repeat at around 39wks, pt with noted uterine window at the time of . Transfusion post RLTCS. Pt has been receiving 17-P weekly and undergoing cervical monitoring. Pt has had cervical shortening from normal to 1.3. Today on exam, cervix is noted to be very soft but posterior. Cervical length today is 1.6-1.7 with Y shaped funnel without noted dynamic changes. Discussed with pt since it appears her cervix is stable and if she has no further concerning contractions without use of tocolytics and negative fibronectin (FFN), will discharge home on pelvic rest. If fibronectin returns positive, will monitor overnight but will not do interventions such as steriods, magnesium or set for transfer unless clinically indicated by change in patient's status. PLANS FOR LABOR AND DELIVERY Labor and Delivery: None Pain Management: Spinal Feeding Preference: Breast Benefit of Breast Feed Discussed: Yes Circumcision: N/A INFORMED CONSENT Signature: with User ID: [email or web address]
[2017-10-19] MEDS: PRENATAL VITAMIN W DHA CAPSULE PO SCH (11:40)
[2017-10-19] MEDS: DOCUSATE SODIUM 100 MG CAPSULE PO SCH ×2 (11:40→18:05)
[2017-10-19] MEDS ORDERED: HYDROCODONE/ACETAMINOPHEN 5-325 MG TABLET ONE (11:59)
[2017-10-19] MEDS ORDERED: HYDROCODONE/ACETAMINOPHEN 5-325 MG TABLET PO PRN (12:08)
[2017-10-19] MEDS: HYDROCODONE/ACETAMINOPHEN 5-325 MG TABLET PO PRN ×3 (12:18→22:08)
[2017-10-20] MEDS: SIMETHICONE 80 MG TAB.CHEW PO PRN (00:53)
[2017-10-20] MEDS: KETOROLAC TROMETHAMINE INJ/PF 30 MG/1 ML SDV IV SCH (02:35)
[2017-10-20] MEDS: HYDROCODONE/ACETAMINOPHEN 5-325 MG TABLET PO PRN ×3 (06:24→17:27)
[2017-10-20 07:02] LABS: HEMATOCRIT 26.8 % (36.0-47.0); HEMOGLOBIN 9.5 g/dL (12.0-15.5); HGB HCT DIFFERENCE 1.7; MEAN CORPUSCULAR HEMOGLOBIN 32.5 pg (27.0-33.4); MEAN CORPUSCULAR HGB CONC 35.4 g/dL (32.0-36.0); MEAN CORPUSCULAR VOLUME 92 fl (80-97); RED BLOOD COUNT 2.92 10^6/uL (3.72-5.28); RED CELL DISTRIBUTION WIDTH 13.6 % (11.5-14.0); WHITE BLOOD COUNT 9.7 10^3/uL (4.0-10.5)
[2017-10-20] MEDS: PRENATAL VITAMIN W DHA CAPSULE PO SCH (09:25)
[2017-10-20] MEDS: DOCUSATE SODIUM 100 MG CAPSULE PO SCH ×2 (09:25→17:28)
--- NOTE | 2017-10-20 12:36 | PDOC PROGRESS REPORT ---
Subjective-OB Subjective: Post Delivery Day:1 27 year old G7 now P3 s/p RLTCS ppd1. Ambulating, passing gas and voiding without difficulty. Denies any needs at this time Physical Exam (OB) Vital Signs: Temp Pulse Resp BP Pulse Ox 96.2 F L 86 16 106/62 100 10/20/17 08:07 10/20/17 08:07 10/20/17 08:07 10/20/17 08:07 10/20/17 08:07 Intake & Output 10/19/17 10/20/17 10/21/17 06:59 06:59 06:59 Intake Total 2090 Output Total 2250 1150 Balance -160 -1150 Weight 87.09 kg - General General Appearance: Appears well In distress: None - PIH/Pre-Eclampsia DTR's: 1 + Clonus: Negative Headache: Absent Epigastric Pain: No Visual Changes: No - Dressing Removed: No Incision: Dressing Closure Type: op site - Lochia Lochia Amount: Scant < 10 ml Lochia Color: Rubra/Red - Abdomen Description: Tender, Soft, Flat Hernia Present: No Fundal Description: Firm, Midline Fundal Height: u/u - u/2 - Respiratory Respiratory Status: No respiratory distress - Extremities Upper extremity: Normal inspection Lower extremities: Normal inspection - Neurological Cognition: Normal Orientation: AAOx4 - Psychological Associated symptoms: Normal affect, Normal mood Objective-Diagnostic Laboratory: 10/20/17 06:30 10/20/17 06:30 WBC 9.7 RBC 2.92 L Hgb 9.5 L Hct 26.8 L MCV 92 MCH 32.5 MCHC 35.4 RDW 13.6 Plt Count 181 Assessment and Plan(PN) - Assessment and Plan (1) Status post repeat low transverse section Is this a current diagnosis for this admission?: Yes Plan: routine pp care (2) Anemia complicating , third trimester Is this a current diagnosis for this admission?: Yes Plan: increase dietary iron and feso4 BID - Time Spent with Patient Time with patient: 15-25 minutes Medications reviewed and adjusted accordingly: Yes - Disposition Anticipated Discharge: Home Within: within 24 hours
[2017-10-20] MEDS: IBUPROFEN 800 MG TABLET PO SCH ×2 (17:27→23:36)
[2017-10-20] MEDS: FERROUS SULFATE 325 MG TABLET PO SCH (17:27)
[2017-10-21] MEDS: HYDROCODONE/ACETAMINOPHEN 5-325 MG TABLET PO PRN ×2 (01:31→05:22)
[2017-10-21] MEDS: IBUPROFEN 800 MG TABLET PO SCH (05:19)
[2017-10-21] MEDS: PRENATAL VITAMIN W DHA CAPSULE PO SCH (09:16)
[2017-10-21] MEDS: DOCUSATE SODIUM 100 MG CAPSULE PO SCH (09:16)
[2017-10-21] MEDS: FERROUS SULFATE 325 MG TABLET PO SCH (09:17)
--- NOTE | 2017-10-21 09:28 | PDOC DISCHARGE SUMMARY ---
Final Diagnosis Discharge Date: 10/21/17 - Final Diagnosis (1) Anemia complicating , third trimester Is this a current diagnosis for this admission?: Yes (2) Status post repeat low transverse section Is this a current diagnosis for this admission?: Yes Discharge Data - Discharge Medication Home Medications: Pnv No.95/Ferrous Fum/Folic AC [ Multivitamin Tablet] 1 each PO DAILY Reason(s) for Admission: Ceasarean Section-Repeat Intrapartum Procedure(s): : Low Cervical, Transverse - Diagnosis Test Laboratory: Temp Pulse Resp BP Pulse Ox 97.8 F 97 16 107/58 L 99 10/21/17 08:18 10/21/17 08:18 10/21/17 08:18 10/21/17 08:18 10/21/17 08:18 10/16/17 10/17/17 10/20/17 09:50 09:46 06:30 RBC 3.38 L 2.92 L Hgb 10.7 L 9.5 L Hct 30.7 L 26.8 L Urine Opiates Screen NEGATIVE - Discharge information/Instructions Discharge Activity: Activity As Tolerated Discharge Diet: Regular Disposition: HOME, SELF-CARE Follow up with: [facility] in: 1 - no driving while on any controlled substance rubella prior to discharge follow up in 1 week at clinic
[2017-10-21] MEDS: SIMETHICONE 80 MG TAB.CHEW PO PRN (10:12)
[2017-10-21 10:40] VITALS: BP 106/57
== END 2017-10-21 11:38 | disposition home or self-care (01) | DRG 766 ==
LOC: 2S 05:03
PROVIDERS: ADMIT Obstetrics & Gynecology; ATTEND Obstetrics & Gynecology
PROC: 4A1HXCZ Monitoring of Products of Conception, Cardiac Rate, External Approach (ICD-10-PCS; 2017-10-19)
PROC: 10D00Z1 Extraction of Products of Conception, Low, Open Approach (ICD-10-PCS; principal; 2017-10-19 07:45)
PROC: 3E0234Z Introduction of Serum, Toxoid and Vaccine into Muscle, Percutaneous Approach (ICD-10-PCS; 2017-10-21)
DX: O34.211 Maternal care for low transverse scar from previous cesarean delivery (principal); O99.02 Anemia complicating childbirth; D64.9 Anemia, unspecified; O99.334 Smoking (tobacco) complicating childbirth; F17.210 Nicotine dependence, cigarettes, uncomplicated; O99.343 Other mental disorders complicating pregnancy, third trimester; F32.9 Major depressive disorder, single episode, unspecified; Z23 Encounter for immunization; Z3A.37 37 weeks gestation of pregnancy; Z83.3 Family history of diabetes mellitus; Z82.49 Family history of ischemic heart disease and other diseases of the circulatory system; Z80.6 Family history of leukemia; Z80.42 Family history of malignant neoplasm of prostate; Z37.0 Single live birth
CPT/HCPCS: 1961; 36415; 59025; 80307; 81001; 85025; 85027; 86850; 86900; 86901; 86920; 90707; 94799; J0131; J0690; J1170; J1885; J2250; J2300; J2405; J2550; J2590; J3010; J3490; J7120

== ENCOUNTER 2018-04-14 13:43 | Emergency (ER) | payer OTHER, MEDICAID ==
--- NOTE | 2018-04-14 15:22 | ER Document Report ---
ED Medical Screen (RME) - General Chief Complaint: Abdominal Pain Stated Complaint: ABDOMINAL PAIN Time Seen by Provider: 04/14/18 15:15 TRAVEL OUTSIDE OF THE [place] IN LAST 30 DAYS: No - HPI Notes: 04/14/18 15:21 Lower abdominal pain that she feels her IUD placed - Related Data Allergies/Adverse Reactions: No Known Allergies Allergy (Verified 04/14/18 15:11) Past Medical History - Social History Chew tobacco use (# tins/day): No Frequency of alcohol use: None Drug Abuse: None - Past Medical History Cardiac Medical History: Denies: Hx Pulmonary Embolism Pulmonary Medical History: Reports: Hx Asthma - last attack age 14 Denies: Hx Sleep Apnea, Hx Tuberculosis Renal/ Medical History: Denies: Hx Ovarian Cysts, Hx Peritoneal Dialysis, Hx Pelvic Inflammatory Disease Malignancy Medical History: Denies: Hx Breast Cancer, Hx Cervical Cancer, Hx Ovarian Cancer Psychiatric Medical History: Reports: Hx Bipolar Disorder, Hx Depression - post depression Denies: Hx Post Traumatic Stress Disorder, Hx Schizophrenia Past Surgical History: Reports: Hx Section - x2 - Immunizations Hx Diphtheria, Pertussis, Tetanus Vaccination: Yes History of Influenza Vaccine for 08/2017 - 12/2017 Season: Yes Influenza Administration Date for 08/2017 - 12/2017 Season: 08/10/17 Review of Systems - Review of Systems Gastrointestinal: Abdominal pain Physical Exam - Vital signs Vitals: Temp Pulse Resp BP Pulse Ox 98.2 F 98 16 99/64 L 94 04/14/18 13:49 04/14/18 13:49 04/14/18 13:49 04/14/18 13:49 04/14/18 13:49 - General General appearance: Appears well In distress: None - HEENT Head: Normocephalic Eyes: Normal Course - Vital Signs Vital signs: Temp Pulse Resp BP Pulse Ox 102.3 F H 128 H 28 H 111/65 97 04/14/18 13:56 04/14/18 13:56 04/14/18 13:56 04/14/18 13:56 04/14/18 13:56
--- NOTE | 2018-04-14 16:06 | ER Document Report ---
ED GI/ - General Chief Complaint: Abdominal Pain Stated Complaint: ABDOMINAL PAIN Time Seen by Provider: 04/14/18 15:15 Notes: Patient is a 27-year-old female who had an IUD placed in November 2017 presents with suprapubic cramping and sharp pain. Patient states that this started earlier today. She did not take anything prior to arrival denies any vaginal pain, vaginal discharge or bleeding. States that she has never had pain with this before. She admits to with previous IUDs that she had recurrent yeast infections but denies the symptoms been consistent with that. TRAVEL OUTSIDE OF THE [place] IN LAST 30 DAYS: No - Related Data Allergies/Adverse Reactions: No Known Allergies Allergy (Verified 04/14/18 15:11) Past Medical History - Social History Smoking Status: Current Every Day Smoker Chew tobacco use (# tins/day): No Frequency of alcohol use: None Drug Abuse: None Family History: Reviewed & Not Pertinent Patient has suicidal ideation: No Patient has homicidal ideation: No - Past Medical History Cardiac Medical History: Denies: Hx Pulmonary Embolism Pulmonary Medical History: Reports: Hx Asthma - last attack age 14 Denies: Hx Sleep Apnea, Hx Tuberculosis Renal/ Medical History: Denies: Hx Ovarian Cysts, Hx Peritoneal Dialysis, Hx Pelvic Inflammatory Disease Malignancy Medical History: Denies: Hx Breast Cancer, Hx Cervical Cancer, Hx Ovarian Cancer Psychiatric Medical History: Reports: Hx Bipolar Disorder, Hx Depression - post depression Denies: Hx Post Traumatic Stress Disorder, Hx Schizophrenia Past Surgical History: Reports: Hx Section - x2 - Immunizations Hx Diphtheria, Pertussis, Tetanus Vaccination: Yes Review of Systems - Review of Systems Constitutional: No symptoms reported Cardiovascular: No symptoms reported Respiratory: No symptoms reported Gastrointestinal: No symptoms reported Genitourinary: See HPI Female Genitourinary: See HPI Musculoskeletal: No symptoms reported Physical Exam - Vital signs Vitals: Temp Pulse Resp BP Pulse Ox 98.2 F 98 16 99/64 L 94 04/14/18 13:49 04/14/18 13:49 04/14/18 13:49 04/14/18 13:49 04/14/18 13:49 - Notes Notes: PHYSICAL EXAM GENERAL: Alert, interacts well. HEAD: Normocephalic, atraumatic. ABDOMEN: Soft, nondistended, nontender. No guarding, rebound, or rigidity.. Bowel sounds present in all 4 quadrants. FEMALE : Normal external exam. No evidence of lesions, lacerations, bruising or vesicles. Speculum exam normal cervix closed with Mirena strings visible but with significant white/yellowish thick discharge without odor. No evidence of lesions. No vaginal bleeding. Bimanual exam normal no cervical motion tenderness. No adnexal mass but evidence of right adnexal tenderness. EXTREMITIES: Moves all 4 extremities spontaneously. No edema, radial and dorsalis pedis pulses 2/4 bilaterally. No cyanosis. NEUROLOGICAL: Alert and oriented x4. Normal speech. PSYCH: Normal affect, normal mood. SKIN: Warm, dry, normal turgor. No rashes or lesions noted. Course - Re-evaluation Re-evalutation: 04/14/18 20:10 Patient is a 27-year-old female who is hemodynamically stable, no acute distress and afebrile. No evidence of leukocytosis or anemia. No evidence of electrolyte abnormalities, renal insufficiency. Urinalysis without evidence of underlying cystitis. Presentation concerning for PID without any concerns for sepsis. Mirena is in place within the cervix. Ultrasound does reveal evidence of small ovarian cysts with free fluid in the right adnexa. Chlamydia and gonorrhea pending and has to be repeated by the lab due to analysis air. Case reviewed with Dr. Farrar who recommends leaving IUD in place treating her for PID and having her follow-up in the office. Patient is agreeable with this plan and stable for discharge home - Vital Signs Vital signs: Temp Pulse Resp BP Pulse Ox 97.8 F 73 28 H 93/57 L 97 04/14/18 20:19 04/14/18 20:19 04/14/18 13:56 04/14/18 20:19 04/14/18 20:19 - Laboratory Result Diagrams: 04/14/18 15:37 04/14/18 15:37 Laboratory results interpreted by me: 04/14/18 04/14/18 15:37 15:37 Carbon Dioxide 31 H Urine Ketones TRACE H Urine Urobilinogen 4.0 H - Diagnostic Test Radiology reviewed: Reports reviewed Discharge - Discharge Clinical Impression: Pelvic pain Condition: Good Disposition: HOME, SELF-CARE Additional Instructions: You are being treated for pelvic infection. Please take all of your antibiotics as directed and complete the entire course even if you start to feel better. [facility] follow[facility] before the weekend. Please return to the emergency department with any worsening abdominal pain, fever, or any symptoms worrisome to you. Prescriptions: Doxycycline Hyclate 100 mg PO BID #28 capsule Metronidazole [Flagyl 500 mg Tablet] 500 mg PO BID #28 tablet Ondansetron [Zofran Odt 4 mg Tablet] 1 - 2 tab PO Q4H PRN #15 tab.rapdis PRN Reason: For Nausea/Vomiting Tramadol HCl 50 mg PO TID #15 tablet Forms: Return to Work Referrals: [facility] [Provider Group] - Follow up tomorrow
[2018-04-14 16:10] LABS: ABSOLUTE BASOPHILS # (AUTO) 0.1 10^3/uL (0.0-0.2); ABSOLUTE EOSINOPHILS # (AUTO) 0.1 10^3/uL (0.0-0.6); ABSOLUTE LYMPHOCYTES (AUTO) 1.8 10^3/uL (0.5-4.7); ABSOLUTE MONOCYTES (AUTO) 0.4 10^3/uL (0.1-1.4); ABSOLUTE NEUT (AUTO) 5.1 10^3/uL (1.7-8.2); BASOPHILS % (AUTO) 0.8 % (0-2); EOSINOPHILS % (AUTO) 1.3 % (0-6); HEMATOCRIT 40.6 % (36.0-47.0); HEMOGLOBIN 13.9 g/dL (12.0-15.5); LYMPHOCYTES % (AUTO) 23.9 % (13-45); MEAN CORPUSCULAR HEMOGLOBIN 29.8 pg (27.0-33.4); MEAN CORPUSCULAR HGB CONC 34.2 g/dL (32.0-36.0); MEAN CORPUSCULAR VOLUME 87 fl (80-97); MONOCYTES % (AUTO) 4.9 % (3-13); PLATELET COUNT 310 10^3/uL (150-450); RED BLOOD COUNT 4.64 10^6/uL (3.72-5.28); RED CELL DISTRIBUTION WIDTH 13.8 % (11.5-14.0); SEGMENTED NEUTROPHILS % (AUTO) 69.1 % (42-78); TOTAL CELLS COUNTED % (AUTO) 100 %; WHITE BLOOD COUNT 7.4 10^3/uL (4.0-10.5)
[2018-04-14 16:22] LABS: APPEARANCE,URINE SLIGHTLY-CLOUDY; BILIRUBIN,URINE NEGATIVE (NEGATIVE); COLOR,URINE YELLOW; GLUCOSE, URINE NEGATIVE (NEGATIVE); KETONES,URINE TRACE mg/dL (NEGATIVE); LEUKOCYTE ESTERASE,URINE NEGATIVE (NEGATIVE); NITRITE,URINE NEGATIVE (NEGATIVE); PROTEIN,URINE NEGATIVE (NEGATIVE); URINE SPECIFIC GRAVITY 1.018
[2018-04-14 16:28] LABS: ALANINE AMINOTRANSFERASE 17 U/L (9-52); ALBUMIN 4.2 g/dL (3.5-5.0); ALKALINE PHOSPHATASE 62 U/L (38-126); ANION GAP 12 (5-19); ASPARTATE AMINO TRANSFERASE 16 U/L (14-36); BILIRUBIN,DIRECT 0.3 mg/dL (0.0-0.4); BILIRUBIN,TOTAL 0.3 mg/dL (0.2-1.3); BLOOD UREA NITROGEN 7 mg/dL (7-20); CALCIUM 10.2 mg/dL (8.4-10.2); CARBON DIOXIDE 31 mmol/L (22-30); CHLORIDE 101 mmol/L (98-107); GLUCOSE 89 mg/dL (75-110); LIPASE 58.5 U/L (23-300); POTASSIUM 4.1 mmol/L (3.6-5.0); SODIUM 143.8 mmol/L (137-145); TOTAL PROTEIN 6.6 g/dL (6.3-8.2)
[2018-04-14 17:48] LABS: T.VAGINALIS (WET MOUNT) NO TRICHOMONAS SEEN; YEAST (WET MOUNT) NO YEAST SEEN
[2018-04-14 17:49] LABS: BACTERIA (WET MOUNT) 3+ BACTERIA SEEN; WBCS (WET MOUNT) FEW WBCS SEEN
[2018-04-14] MEDS ORDERED: OXYCODONE-ACETAMINOPHEN 5-325 MG TABLET PO ONE (18:31)
[2018-04-14] MEDS ORDERED: OXYCODONE-ACETAMINOPHEN 5-325 MG TABLET ONE (18:32)
--- NOTE | 2018-04-14 19:37 | RADIOLOGY REPORT (SQ) ---
EXAM DESCRIPTION: U/S NON-OB PELVIS TV W/O DOP COMPLETED DATE/TIME: 04/14/2018 7:18 pm REASON FOR STUDY: purulent discharge with IUD and pain uncertain LMP. COMPARISON: None. TECHNIQUE: Dynamic and static grayscale images acquired of the pelvis via transvaginal approach and recorded on PACS. Additional selected color Doppler and spectral images recorded. LIMITATIONS: None. FINDINGS: UTERUS: Contour normal. No mass. ENDOMETRIAL STRIPE: Not seen. CERVIX: 3 cm. No nabothian cysts. RIGHT OVARY AND DOPPLER: Normal size, 2.6 x 2.3 x 1.8 cm. No worrisome masses. Several small cysts. Normal arterial vascular flow without evidence for torsion. LEFT OVARY AND DOPPLER: Ovary not seen. FREE FLUID: There is a small amount of free fluid around the right adnexa. OTHER: No other significant finding. MEASUREMENTS: UTERUS: 8.6 x 4.6 x 6.4 cm. ENDOMETRIAL STRIPE: Not seen. RIGHT OVARY: 2.6 x 2.3 x 1.8 cm. LEFT OVARY: Not seen. IMPRESSION: Multiple small right ovarian cysts. Nonspecific. Small amount of free fluid. TECHNICAL DOCUMENTATION: JOB ID: [id number] [employer]- All Rights Reserved Rev-03/19 Reading location - IP/workstation name: [email or web address]
[2018-04-14] MEDS ORDERED: METRONIDAZOLE 500 MG TABLET PO ONE (20:09)
[2018-04-14] MEDS ORDERED: CEFTRIAXONE INJ 500 MG VIAL IM ONE (20:09)
[2018-04-14] MEDS ORDERED: AZITHROMYCIN 250 MG TABLET PO ONE (20:09)
[2018-04-14] MEDS ORDERED: LIDOCAINE 1% INJ-PF (10 MG/ML) 30 ML SDV INJ ONE (20:09)
[2018-04-14] MEDS ORDERED: DOXYCYCLINE HYCLATE 100 MG TABLET PO ONE (20:10)
[2018-04-14 20:20] VITALS: BP 93/57
[2018-04-14 20:49] LABS: CHLAM PCR NOT DETECTED (NOT DETECT); GON PCR NOT DETECTED (NOT DETECT)
== END 2018-04-14 20:38 | disposition home or self-care (01) ==
LOC: ER 13:43
DX: N73.9 Female pelvic inflammatory disease, unspecified (principal); N83.201 Unspecified ovarian cyst, right side; R10.2 Pelvic and perineal pain; J45.909 Unspecified asthma, uncomplicated; F17.200 Nicotine dependence, unspecified, uncomplicated; Z97.5 Presence of (intrauterine) contraceptive device
CPT/HCPCS: 99284; 96372; 36415; 87210; 84702; 83690; 85025; 80053; 81001; 87491; 87591; 76830; J3490; J0696